=== PATIENT | female | born 1960 | race Caucasian/White ===

== ENCOUNTER 2023-01-26 15:13 | Emergency (ER) | payer OTHER, SELFPAY ==
[2023-01-26 15:35] VITALS: BP 145/74; PULSE 86; RESP 16; TEMP 36.6; O2SAT 97; BMI 33.9
== END 2023-01-26 16:40 | disposition left against medical advice (07) ==
PROVIDERS: Emergency Provider Emergency Medicine
CPT/HCPCS: 99281